=== PATIENT | male | born 1970 | race Caucasian/White ===

== ENCOUNTER 2023-03-04 02:07 | Emergency (ER) | payer OTHER ==
[~2023-03-04] VITALS: Ht 182.9 cm; Wt 113.4 kg
[2023-03-04] MEDS ORDERED: COLCHICINE0.6 MG PO (05:07)
[2023-03-04] MEDS ORDERED: Indomethacin50 MG PO (05:07)
[2023-03-04 05:19] VITALS: BP 130/75
== END 2023-03-04 05:33 | disposition home or self-care (01) ==
LOC: ER 02:07
DX: M10.9 Gout, unspecified (principal)
CPT/HCPCS: 73562-LT; 99284-25; A9270